=== PATIENT | male | born 1985 | race Caucasian/White ===

== ENCOUNTER 2019-11-11 09:12 | Emergency (ER) | payer OTHER, SELFPAY ==
--- NOTE | 2019-11-11 09:14 | ED.GENADULT ---
HPI - General Adult General Chief complaint: Upper Respiratory Infection Stated complaint: fever/mucus/cough/ryan/body aches/sweating Time Seen by Provider: 11/11/19 09:36 Source: patient Mode of arrival: ambulatory Limitations: no limitations History of Present Illness HPI narrative: 33-year-old male patient presents to the [facility] care with complaints of cold symptoms that started 2 days ago and today is day 3 of his symptoms. Patient states that he did not get his flu shot this year. Patient states he has had some congestion, body aches, chills and fevers. Denies any chest pain or shortness of breath. Denies any abdominal pain, nausea, vomiting or diarrhea. Related Data Home Medications Medication Instructions Recorded Confirmed lisinopril 10 mg tablet 10 mg PO DAILY 10/27/19 Allergies Allergy/AdvReac Type Severity Reaction Status Date / Time No Known Allergies Allergy Unknown Verified 10/29/19 15:35 Review of Systems Review of Systems: Narrative: CONSTITUTIONAL: Positive fever, body aches, chills, and sweats. EYES: Denies visual changes, redness, or discharge. ENT: Positive rhinorrhea, congestion, denies sore throat, or otalgia. CARDIOVASCULAR: Denies chest pain, palpitations, or edema. RESPIRATORY: Denies cough or dyspnea. GASTROINTESTINAL: Denies abdominal pain, nausea, vomiting, or diarrhea. GENITOURINARY: Denies dysuria or hematuria. SKIN: Denies rash or itching. MUSCULOSKELETAL: Denies back pain, joint pain, or myalgia. NEUROLOGIC: Denies headache, numbness, or weakness. PSYCHIATRIC: Denies anxiety or depression. [facility] Family History Family History Sibling Family history of elevated blood lipids Social History Social History Smoking status: Former smoker Second hand tobacco smoke exposure: No Alcohol intake: current Comments At the time of my signature I agree with nursing past medical history, surgical, social, and family history. There is no relevant family history pertinent to the presenting complaint. Exam Narrative: Exam Narrative: GENERAL: ill-appearing, well-nourished, and in no acute distress. HEAD: Normocephalic, atraumatic. No tenderness noted to frontal maxillary sinuses on palpation. EYES: PERRLA and EOMI. ENT: Nares with erythema and edema noted bilateral, no rhinorrhea or epistaxis. Mucous membranes moist. Posterior pharynx with no erythema, tonsillar margin, exudates or lesions present. Bilateral TMs are clear with no erythema or foreign bodies in the canal. NECK: Supple. No lymphadenopathy CHEST: Clear to auscultation. No respiratory distress. HEART: Regular rate and rhythm. No murmur heard. Normal peripheral pulses. ABDOMEN: Soft, nontender, nondistended, normal active bowel sounds. EXTREMITIES: Normal range of motion. No edema. SKIN: Warm, dry, no rash. NEURO: No focal deficits. Alert and oriented x3. Course Vital Signs Vital signs: Vital Signs Temperature 36.3 C L 11/11/19 09:24 Pulse Rate 101 H 11/11/19 09:24 Respiratory Rate 11/11/19 09:24 Blood Pressure 141/92 H 11/11/19 09:24 Pulse Oximetry 99 11/11/19 09:24 Temperature 36.3 C L 11/11/19 09:24 Pulse Rate 101 H 11/11/19 09:27 Respiratory Rate 20 11/11/19 09:27 Blood Pressure 141/92 H 11/11/19 09:24 Pulse Oximetry 99 11/11/19 09:27 Vital signs reviewed. Medical Decision Making Differential Diagnosis Differential Diagnosis: Differential diagnosis: Allergic rhinitis, chronic sinusitis, tonsillitis, acute sinusitis, infectious mononucleosis, seasonal influenza, pertussis, diphtheria, meningococcal disease, viral syndrome, viral bronchitis, RSV. Discussed with patient he is positive today for influenza A and since this is his third day of symptoms he is outside of the window for any antivirals. Discussed with patient he can continue taking Tylenol, ibuprofen for chills, body a
[2019-11-11 09:24] VITALS: BP 141/92; PULSE 101; RESP 20; TEMP 36.3; O2SAT 99
[2019-11-11 09:27] VITALS: PULSE 101; RESP 20; O2SAT 99
== END 2019-11-11 09:43 | disposition home or self-care (01) ==
PROVIDERS: Emergency Provider Nurse Practitioner Family; PCP Internal Medicine
DX: J10.1 Influenza due to other identified influenza virus with other respiratory manifestations (principal); Z87.891 Personal history of nicotine dependence; I10 Essential (primary) hypertension
CPT/HCPCS: 87804; 99212; G0463